=== PATIENT | male | born 1970 | race Two or more races ===

== ENCOUNTER 2017-05-16 22:54 | Emergency (ER) | payer SELFPAY ==
[~2017-05-16] VITALS: Ht 170.2 cm; Wt 102.1 kg
[2017-05-16] MEDS ORDERED: LIDOCAINE 1%, 20ML ONE (23:15)
[2017-05-16] MEDS ORDERED: LIDOCAINE 1%, 10ML INFIL ONE (23:30)
[2017-05-17 00:23] VITALS: BP 144/82
== END 2017-05-17 00:26 | disposition home or self-care (01) ==
LOC: ED 23:25
DX: L60.0 Ingrowing nail (principal)
CPT/HCPCS: 11750